=== PATIENT | female | born 1960 | race Caucasian/White ===

== ENCOUNTER 2018-04-02 08:15 | Inpatient (IN) | payer BC ==
[2018-04-02 09:02] LABS: ADD MAN DIFF? NO
[2018-04-02 09:22] LABS: BASOPHIL # 0.1 10^3/ul (0.0-0.1); BASOPHILS % 0.9 % (0.0-2.0); EOSINOPHILS # 0.2 10^3/ul (0.0-0.5); EOSINOPHILS % 3.6 % (0.0-7.0); HEMATOCRIT 44.1 % (37.0-47.0); HEMOGLOBIN 14.8 g/dl (12.0-16.0); LYMPHOCYTES # 2.5 10^3/ul (0.8-2.9); LYMPHOCYTES % 37.9 % (15.0-51.0); MEAN CORPUSCULAR HEMOGLOBIN 29.9 pg (29.0-33.0); MEAN CORPUSCULAR HGB CONC 33.6 g/dl (32.0-37.0); MEAN CORPUSCULAR VOLUME 89.1 fl (82.0-101.0); MEAN PLATELET VOLUME 10.7 fl (7.4-10.4); MONOCYTE # 0.5 10^3/ul (0.3-0.9); MONOCYTES % 7.9 % (0.0-11.0); NEUTROPHIL # 3.3 10^3/ul (1.6-7.5); NEUTROPHILS % 49.6 % (39.0-77.0); PLATELET COUNT 177 10^3/UL (140-415); RED BLOOD COUNT 4.95 10^6/ul (4.20-5.40); RED CELL DISTRIBUTION WIDTH 15.6 % (11.5-14.5)
[2018-04-02 09:22] LABS: WHITE BLOOD COUNT 6.7 10^3/ul (4.8-10.8)
[2018-04-02 09:31] LABS: ALANINE AMINOTRANSFERASE 54 IU/L (13-69); ALBUMIN 4.1 g/dl (3.3-4.9); ALBUMIN/GLOBULIN RATIO 1.13; ALKALINE PHOSPHATASE 113 IU/L (42-121); ANION GAP 18 (8-16); ASPARTATE AMINO TRANSFERASE 35 IU/L (15-46); BILIRUBIN,INDIRECT 0.3 mg/dl (0-1.1); BILIRUBIN,TOTAL 0.3 mg/dl (0.2-1.3); BLOOD UREA NITROGEN 31 mg/dl (7-20); CALCIUM 8.1 mg/dl (8.4-10.2); CARBON DIOXIDE 29 mmol/L (21-31); CHLORIDE 94 mmol/L (97-110); CREATININE 2.37 mg/dl (0.44-1.00); GLUCOSE 113 mg/dl (70-220); POTASSIUM 4.3 mmol/L (3.5-5.1); SODIUM 137 mmol/L (135-144); TOTAL PROTEIN 7.7 g/dl (6.1-8.1)
[2018-04-02 09:32] LABS: PROTIME 11.1 Sec (11.9-14.9); PT RATIO 0.9
[2018-04-02 09:33] LABS: PARTIAL THROMBOPLASTIN TIME 51.5 Sec (25.0-35.0)
[2018-04-02 09:42] LABS: TROPONIN-I 0.012 ng/ml (0.000-0.120)
[2018-04-02] MEDS ORDERED: ONDANSETRON 4 MG INJ IV (11:30)
[2018-04-02] MEDS ORDERED: ACETAMINOPHEN 325 MG TAB PO (11:30)
[2018-04-02] MEDS: LEVETIRACETAM 1000 MG (PMX) 100 ML IVPB (11:31)
[2018-04-02] MEDS: HEPARIN 5,000 UNIT/0.5 ML VIAL SC (13:53)
[2018-04-02] MEDS ORDERED: INSULIN GLARGINE HUM REC ANLOG U SC (17:30)
[2018-04-02] MEDS ORDERED: [UNRECOGNIZED DRUG - OTHER] SC (17:30)
[2018-04-02] MEDS: ATORVASTATIN 40 MG TAB PO (20:55)
[2018-04-02 22:37] LABS: HEPATITIS B SURFACE ANTIGEN NEGATIVE (NEGATIVE)
[2018-04-03 00:44] LABS: HEPATITIS B SURFACE ANTIBODY INDETERMINATE (NEGATIVE)
[2018-04-03] MEDS: LEVOTHYROXINE 112 MCG TAB PO (06:05)
[2018-04-03 07:57] LABS: ADD MAN DIFF? NO
[2018-04-03] MEDS: INSULIN ASPART [NOVOLOG] 3 ML PEN SC ×4 (08:00→20:54)
[2018-04-03 08:03] LABS: BASOPHIL # 0.1 10^3/ul (0.0-0.1); BASOPHILS % 0.9 % (0.0-2.0); EOSINOPHILS # 0.2 10^3/ul (0.0-0.5); EOSINOPHILS % 3.1 % (0.0-7.0); HEMATOCRIT 45.3 % (37.0-47.0); HEMOGLOBIN 14.8 g/dl (12.0-16.0); LYMPHOCYTES # 2.4 10^3/ul (0.8-2.9); LYMPHOCYTES % 40.3 % (15.0-51.0); MEAN CORPUSCULAR HEMOGLOBIN 29.6 pg (29.0-33.0); MEAN CORPUSCULAR HGB CONC 32.7 g/dl (32.0-37.0); MEAN CORPUSCULAR VOLUME 90.6 fl (82.0-101.0); MEAN PLATELET VOLUME 10.1 fl (7.4-10.4); MONOCYTE # 0.4 10^3/ul (0.3-0.9); MONOCYTES % 6.7 % (0.0-11.0); NEUTROPHIL # 2.9 10^3/ul (1.6-7.5); NEUTROPHILS % 48.8 % (39.0-77.0); PLATELET COUNT 183 10^3/UL (140-415); RED CELL DISTRIBUTION WIDTH 15.7 % (11.5-14.5)
[2018-04-03 08:03] LABS: WHITE BLOOD COUNT 5.9 10^3/ul (4.8-10.8)
[2018-04-03 08:28] LABS: ANION GAP 15 (8-16); BLOOD UREA NITROGEN 47 mg/dl (7-20); CALCIUM 8.5 mg/dl (8.4-10.2); CARBON DIOXIDE 29 mmol/L (21-31); CHLORIDE 98 mmol/L (97-110); CREATININE 3.21 mg/dl (0.44-1.00); GLUCOSE 91 mg/dl (70-220); MAGNESIUM 2.9 mg/dl (1.7-2.5); PHOSPHORUS 4.5 mg/dl (2.5-4.9); POTASSIUM 5.2 mmol/L (3.5-5.1); SODIUM 137 mmol/L (135-144)
[2018-04-03] MEDS ORDERED: DEXTROSE 50% 50 ML SYRINGE IV ×2 (08:30)
[2018-04-03] MEDS ORDERED: GLUCOSE GEL 15 GRAM TUBE PO ×2 (08:30)
[2018-04-03] MEDS ORDERED: GLUCOSE GEL 15 GRAM TUBE BUCCAL (08:30)
[2018-04-03] MEDS ORDERED: GLUCAGON 1 MG INJ IM (08:30)
[2018-04-03] MEDS: ISOSORBIDE MONONITRATE(SR)30 MG TAB PO (08:41)
[2018-04-03] MEDS: ASPIRIN (EC) 81 MG TAB PO (08:41)
[2018-04-03] MEDS: FAMOTIDINE 20 MG TAB PO (08:41)
[2018-04-03] MEDS: AMLODIPINE 10 MG TAB PO (08:41)
[2018-04-03] MEDS ORDERED: [UNRECOGNIZED DRUG - OTHER] SC (09:00)
[2018-04-03] MEDS ORDERED: INSULIN GLARGINE HUM REC ANLOG U SC (09:00)
[2018-04-03] MEDS: LEVETIRACETAM 500 MG TAB PO ×2 (09:47→20:56)
[2018-04-03 12:30] LABS: FREE T4 (FREE THYROXINE) 1.22 ng/dl (0.64-1.79)
[2018-04-03] MEDS ORDERED: ALBUTEROL/IPRATROPIUM (NEB) 3 ML AMP HHN (17:00)
[2018-04-03] MEDS ORDERED: ALBUMIN HUMAN 25% 100 ML IV (17:00)
[2018-04-03] MEDS: HEPARIN 1000 UNITS/ML 10 ML INJ CATHETER (20:48)
[2018-04-03] MEDS: ATORVASTATIN 40 MG TAB PO (20:56)
[2018-04-03] MEDS: INSULIN GLARGINE [LANtus] 3 ML PEN SC (20:58)
[2018-04-04] MEDS ORDERED: LEVOTHYROXINE 50 MCG TAB PO (06:00)
[2018-04-04 07:50] LABS: ADD MAN DIFF? NO
[2018-04-04 07:54] LABS: WHITE BLOOD COUNT 6.3 10^3/ul (4.8-10.8)
[2018-04-04 07:54] LABS: BASOPHILS % 0.6 % (0.0-2.0); EOSINOPHILS # 0.2 10^3/ul (0.0-0.5); EOSINOPHILS % 3.3 % (0.0-7.0); HEMATOCRIT 43.7 % (37.0-47.0); HEMOGLOBIN 14.3 g/dl (12.0-16.0); LYMPHOCYTES % 46.7 % (15.0-51.0); MEAN CORPUSCULAR HEMOGLOBIN 29.7 pg (29.0-33.0); MEAN CORPUSCULAR HGB CONC 32.7 g/dl (32.0-37.0); MEAN CORPUSCULAR VOLUME 90.9 fl (82.0-101.0); MEAN PLATELET VOLUME 10.3 fl (7.4-10.4); MONOCYTE # 0.6 10^3/ul (0.3-0.9); MONOCYTES % 9.5 % (0.0-11.0); NEUTROPHIL # 2.5 10^3/ul (1.6-7.5); NEUTROPHILS % 39.7 % (39.0-77.0); PLATELET COUNT 174 10^3/UL (140-415); RED BLOOD COUNT 4.81 10^6/ul (4.20-5.40); RED CELL DISTRIBUTION WIDTH 15.6 % (11.5-14.5)
[2018-04-04] MEDS: INSULIN ASPART [NOVOLOG] 3 ML PEN SC ×4 (08:00→20:49)
[2018-04-04] MEDS: LEVOTHYROXINE 112 MCG TAB PO (08:20)
[2018-04-04] MEDS: LEVETIRACETAM 500 MG TAB PO ×3 (08:20→20:51)
[2018-04-04] MEDS: ASPIRIN (EC) 81 MG TAB PO (08:20)
[2018-04-04] MEDS: FAMOTIDINE 20 MG TAB PO (08:20)
[2018-04-04] MEDS: ISOSORBIDE MONONITRATE(SR)30 MG TAB PO (08:21)
[2018-04-04] MEDS: AMLODIPINE 10 MG TAB PO (08:21)
[2018-04-04 08:34] LABS: ANION GAP 14 (8-16); BLOOD UREA NITROGEN 22 mg/dl (7-20); CALCIUM 8.7 mg/dl (8.4-10.2); CARBON DIOXIDE 28 mmol/L (21-31); CHLORIDE 101 mmol/L (97-110); CREATININE 2.32 mg/dl (0.44-1.00); GLUCOSE 72 mg/dl (70-220); MAGNESIUM 2.5 mg/dl (1.7-2.5); POTASSIUM 5.1 mmol/L (3.5-5.1); SODIUM 138 mmol/L (135-144)
[2018-04-04 08:49] LABS: PHOSPHORUS 3.9 mg/dl (2.5-4.9)
[2018-04-04] MEDS: ATORVASTATIN 40 MG TAB PO (20:51)
[2018-04-04] MEDS: INSULIN GLARGINE [LANtus] 3 ML PEN SC (20:51)
[2018-04-05] MEDS: HEPARIN 1000 UNITS/ML 10 ML INJ CATHETER (06:11)
[2018-04-05] MEDS: LEVOTHYROXINE 137 MCG TAB PO (06:58)
[2018-04-05] MEDS: INSULIN ASPART [NOVOLOG] 3 ML PEN SC ×2 (08:00→12:00)
[2018-04-05] MEDS: FAMOTIDINE 20 MG TAB PO (08:44)
[2018-04-05] MEDS: AMLODIPINE 10 MG TAB PO (08:45)
[2018-04-05] MEDS: LEVETIRACETAM 500 MG TAB PO (08:45)
[2018-04-05] MEDS: ISOSORBIDE MONONITRATE(SR)30 MG TAB PO (08:45)
[2018-04-05] MEDS: ASPIRIN (EC) 81 MG TAB PO (08:45)
== END 2018-04-05 17:49 | disposition home health service (06) | DRG 100 ==
LOC: E/R 08:15 → MS4 11:14
DX: R56.9 Unspecified convulsions (principal); N18.6 End stage renal disease; I69.951 Hemiplegia and hemiparesis following unspecified cerebrovascular disease affecting right dominant side; I12.0 Hypertensive chronic kidney disease with stage 5 chronic kidney disease or end stage renal disease; E11.22 Type 2 diabetes mellitus with diabetic chronic kidney disease; I25.10 Atherosclerotic heart disease of native coronary artery without angina pectoris; D63.8 Anemia in other chronic diseases classified elsewhere; I25.5 Ischemic cardiomyopathy; E03.9 Hypothyroidism, unspecified; Z79.4 Long term (current) use of insulin; Z95.1 Presence of aortocoronary bypass graft; Z99.2 Dependence on renal dialysis; Z79.82 Long term (current) use of aspirin; Z88.0 Allergy status to penicillin
CPT/HCPCS: 36415; 70450; 70553; 71045; 80048; 80053; 82962; 83735; 84100; 84439; 84443; 84484; 85025; 85610; 85730; 86706; 87081; 87340; 90935; 93005; 93923; 93970; 99285-25

== ENCOUNTER → 2018-05-08 | Outpatient (CLI) | payer BC ==
[2018-05-08 10:06] LABS: ADD MAN DIFF? NO
[2018-05-08 10:18] LABS: WHITE BLOOD COUNT 7.9 10^3/ul (4.8-10.8)
[2018-05-08 10:18] LABS: BASOPHIL # 0.1 10^3/ul (0.0-0.1); BASOPHILS % 0.9 % (0.0-2.0); EOSINOPHILS # 0.2 10^3/ul (0.0-0.5); EOSINOPHILS % 2.4 % (0.0-7.0); HEMATOCRIT 42.1 % (37.0-47.0); HEMOGLOBIN 13.8 g/dl (12.0-16.0); LYMPHOCYTES # 2.5 10^3/ul (0.8-2.9); LYMPHOCYTES % 32.2 % (15.0-51.0); MEAN CORPUSCULAR HEMOGLOBIN 29.8 pg (29.0-33.0); MEAN CORPUSCULAR HGB CONC 32.8 g/dl (32.0-37.0); MEAN CORPUSCULAR VOLUME 90.9 fl (82.0-101.0); MEAN PLATELET VOLUME 10.5 fl (7.4-10.4); MONOCYTE # 0.6 10^3/ul (0.3-0.9); NEUTROPHIL # 4.4 10^3/ul (1.6-7.5); NEUTROPHILS % 56.2 % (39.0-77.0); PLATELET COUNT 275 10^3/UL (140-415); RED BLOOD COUNT 4.63 10^6/ul (4.20-5.40)
[2018-05-08 10:41] LABS: PROTIME 11.1 Sec (11.9-14.9); PT RATIO 0.9
[2018-05-08 10:42] LABS: PARTIAL THROMBOPLASTIN TIME 27.5 Sec (25.0-35.0)
[2018-05-08 10:45] LABS: ANION GAP 16 (8-16); BLOOD UREA NITROGEN 58 mg/dl (7-20); CALCIUM 9.8 mg/dl (8.4-10.2); CARBON DIOXIDE 28 mmol/L (21-31); CHLORIDE 98 mmol/L (97-110); GLUCOSE 103 mg/dl (70-220); POTASSIUM 5.4 mmol/L (3.5-5.1); SODIUM 137 mmol/L (135-144)
== END | disposition home or self-care (01) ==
LOC: SDS 08:05 → LAB 08:05
DX: I12.0 Hypertensive chronic kidney disease with stage 5 chronic kidney disease or end stage renal disease (principal); N18.6 End stage renal disease; Z53.8 Procedure and treatment not carried out for other reasons
CPT/HCPCS: 80048; 82962; 85025; 85610; 85730

== ENCOUNTER 2018-06-19 06:06 | Outpatient (CLI) | payer BC ==
[2018-06-19] MEDS ORDERED: GLYCOPYRROLATE 0.4 MG INJ (06:25)
[2018-06-19] MEDS ORDERED: ROCURONIUM 50 MG INJ (06:25)
[2018-06-19] MEDS ORDERED: PROPOFOL 20 ML (06:25)
[2018-06-19] MEDS ORDERED: LIDOCAINE 2% (SDV) 5 ML INJ (06:25)
[2018-06-19] MEDS ORDERED: NEOSTIGMINE 3 MG/3 ML SYRINGE (06:25)
[2018-06-19] MEDS ORDERED: FENTAnyl 50 MCG/ML VIAL (06:26)
[2018-06-19] MEDS ORDERED: MIDAZOLAM 1 MG/ML 2 ML INJ (06:26)
[2018-06-19] MEDS ORDERED: DEXAMETHASONE 4 MG/ML 1 ML INJ (06:26)
[2018-06-19] MEDS ORDERED: ROPIVACAINE 0.5 % 30 ML VIAL (06:27)
[2018-06-19] MEDS ORDERED: ONDANSETRON 4 MG INJ (06:27)
[2018-06-19] MEDS ORDERED: EPHEDrine SULFATE 50 MG/5 ML SYG IV (06:30)
[2018-06-19] MEDS ORDERED: DIPHENHYDRAMINE 50 MG INJ IV (06:30)
[2018-06-19] MEDS ORDERED: OXYCODONE/ACETAMINOPHEN (5/325) TAB PO ×2 (06:30)
[2018-06-19] MEDS ORDERED: HYDROmorphONE 1 MG/5 ML IV SYRINGE IV ×3 (06:30)
[2018-06-19] MEDS ORDERED: morphine (1 MG/ML) 10ML SYRINGE IV ×3 (06:30)
[2018-06-19] MEDS ORDERED: ATROPINE 1 MG/10 ML SYRINGE IV (06:30)
[2018-06-19] MEDS ORDERED: ONDANSETRON 4 MG INJ IV (06:30)
[2018-06-19] MEDS ORDERED: MEPERIDINE 25 MG INJ IV (06:30)
[2018-06-19] MEDS ORDERED: MIDAZOLAM 1 MG/ML 2 ML INJ IV (06:30)
[2018-06-19] MEDS ORDERED: hydrALAzine 20 MG INJ IV (06:30)
[2018-06-19] MEDS ORDERED: FENTAnyl 50 MCG/ML VIAL IV ×2 (06:30)
[2018-06-19] MEDS ORDERED: LABETALOL HCL 20MG INJ IV (06:30)
[2018-06-19] MEDS ORDERED: HEPARIN 1000 UNITS/ML 10 ML INJ (06:50)
[2018-06-19] MEDS ORDERED: THROMBIN 5000 UNIT VIAL (06:50)
[2018-06-19] MEDS ORDERED: GELATIN SIZE 100 SPONGE (06:50)
[2018-06-19] MEDS ORDERED: LIDOCAINE 1% (MPF) 30 ML INJ (06:50)
[2018-06-19 07:16] LABS: ADD MAN DIFF? NO
[2018-06-19 07:20] LABS: WHITE BLOOD COUNT 9.5 10^3/ul (4.8-10.8)
[2018-06-19 07:20] LABS: BASOPHIL # 0.1 10^3/ul (0.0-0.1); BASOPHILS % 0.6 % (0.0-2.0); EOSINOPHILS # 0.2 10^3/ul (0.0-0.5); EOSINOPHILS % 2.4 % (0.0-7.0); HEMATOCRIT 32.7 % (37.0-47.0); HEMOGLOBIN 10.8 g/dl (12.0-16.0); LYMPHOCYTES # 2.8 10^3/ul (0.8-2.9); LYMPHOCYTES % 29.3 % (15.0-51.0); MEAN CORPUSCULAR HEMOGLOBIN 33.1 pg (29.0-33.0); MEAN CORPUSCULAR VOLUME 100.3 fl (82.0-101.0); MEAN PLATELET VOLUME 9.4 fl (7.4-10.4); MONOCYTE # 0.9 10^3/ul (0.3-0.9); MONOCYTES % 8.9 % (0.0-11.0); NEUTROPHIL # 5.6 10^3/ul (1.6-7.5); NEUTROPHILS % 58.4 % (39.0-77.0); PLATELET COUNT 331 10^3/UL (140-415); RED BLOOD COUNT 3.26 10^6/ul (4.20-5.40); RED CELL DISTRIBUTION WIDTH 16.8 % (11.5-14.5)
[2018-06-19 07:22] LABS: INR 0.84; PROTIME 11.6 Sec (11.9-14.9); PT RATIO 0.9
[2018-06-19 07:26] LABS: ALANINE AMINOTRANSFERASE 24 IU/L (13-69); ALBUMIN 3.9 g/dl (3.3-4.9); ALBUMIN/GLOBULIN RATIO 1.05; ALKALINE PHOSPHATASE 100 IU/L (42-121); ANION GAP 14 (8-16); ASPARTATE AMINO TRANSFERASE 31 IU/L (15-46); BILIRUBIN,INDIRECT 0.4 mg/dl (0-1.1); BILIRUBIN,TOTAL 0.4 mg/dl (0.2-1.3); BLOOD UREA NITROGEN 35 mg/dl (7-20); CALCIUM 8.8 mg/dl (8.4-10.2); CARBON DIOXIDE 31 mmol/L (21-31); CHLORIDE 95 mmol/L (97-110); CREATININE 3.65 mg/dl (0.44-1.00); GLUCOSE 114 mg/dl (70-220); POTASSIUM 3.8 mmol/L (3.5-5.1); SODIUM 136 mmol/L (135-144); TOTAL PROTEIN 7.6 g/dl (6.1-8.1)
[2018-06-19 08:14] LABS: PARTIAL THROMBOPLASTIN TIME 22.4 Sec (25.0-35.0)
== END 2018-06-19 08:34 | disposition home or self-care (01) ==
LOC: SDS 06:06 → LAB 06:06
DX: I12.0 Hypertensive chronic kidney disease with stage 5 chronic kidney disease or end stage renal disease (principal); N18.6 End stage renal disease; Z53.9 Procedure and treatment not carried out, unspecified reason
CPT/HCPCS: 71045; 80053; 82962; 85025; 85610; 85730; 93005

== ENCOUNTER 2018-07-17 12:08 | Day surgery (SDC) | payer BC ==
[~2018-07-17 12:08] MED LIST: CEFAZOLIN 2 GM/50 ML (PMX) 50 ML IVPB
[2018-07-17 13:51] LABS: ADD MAN DIFF? NO
[2018-07-17 13:52] LABS: BASOPHIL # 0.1 10^3/ul (0.0-0.1); BASOPHILS % 0.9 % (0.0-2.0); EOSINOPHILS # 0.2 10^3/ul (0.0-0.5); EOSINOPHILS % 2.2 % (0.0-7.0); HEMATOCRIT 40.2 % (37.0-47.0); HEMOGLOBIN 13.4 g/dl (12.0-16.0); LYMPHOCYTES # 2.3 10^3/ul (0.8-2.9); LYMPHOCYTES % 34.5 % (15.0-51.0); MEAN CORPUSCULAR HEMOGLOBIN 34.5 pg (29.0-33.0); MEAN CORPUSCULAR HGB CONC 33.3 g/dl (32.0-37.0); MEAN CORPUSCULAR VOLUME 103.6 fl (82.0-101.0); MEAN PLATELET VOLUME 9.4 fl (7.4-10.4); MONOCYTE # 0.5 10^3/ul (0.3-0.9); NEUTROPHIL # 3.7 10^3/ul (1.6-7.5); NEUTROPHILS % 54.1 % (39.0-77.0); PLATELET COUNT 276 10^3/UL (140-415); RED BLOOD COUNT 3.88 10^6/ul (4.20-5.40); RED CELL DISTRIBUTION WIDTH 13.7 % (11.5-14.5)
[2018-07-17 13:52] LABS: WHITE BLOOD COUNT 6.8 10^3/ul (4.8-10.8)
[2018-07-17 14:11] LABS: ANION GAP 15 (8-16); BLOOD UREA NITROGEN 51 mg/dl (7-20); CALCIUM 9.4 mg/dl (8.4-10.2); CARBON DIOXIDE 31 mmol/L (21-31); CHLORIDE 92 mmol/L (97-110); CREATININE 3.69 mg/dl (0.44-1.00); GLUCOSE 108 mg/dl (70-220); POTASSIUM 4.4 mmol/L (3.5-5.1); SODIUM 134 mmol/L (135-144)
[2018-07-17 14:12] LABS: INR 0.85; PARTIAL THROMBOPLASTIN TIME 29.1 Sec (23.0-35.0); PROTIME 11.7 Sec (11.9-14.9); PT RATIO 0.9
[2018-07-17] MEDS ORDERED: FENTAnyl 50 MCG/ML VIAL (15:41)
[2018-07-17] MEDS ORDERED: MIDAZOLAM 1 MG/ML 2 ML INJ (15:41)
[2018-07-17] MEDS ORDERED: ROPIVACAINE 0.5 % 30 ML VIAL (15:44)
[2018-07-17] MEDS: THROMBIN 5000 UNIT VIAL (16:23)
[2018-07-17] MEDS: GELATIN SIZE 100 SPONGE (16:23)
[2018-07-17] MEDS ORDERED: HEPARIN 1000 UNITS/ML 10 ML INJ (16:38)
[2018-07-17] MEDS: HEPARIN 1000 UNITS/ML 10 ML INJ (16:38)
[2018-07-17] MEDS ORDERED: hydrALAzine 20 MG INJ (17:17)
[2018-07-17] MEDS ORDERED: LIDOCAINE 2% (SDV) 5 ML INJ (17:18)
[2018-07-17] MEDS ORDERED: PROPOFOL 20 ML (17:18)
[2018-07-17] MEDS ORDERED: CEFAZOLIN 1 GM INJ (17:18)
[2018-07-17] MEDS ORDERED: HYDROmorphONE 1 MG/5 ML IV SYRINGE IV (18:00)
[2018-07-17] MEDS ORDERED: ONDANSETRON 4 MG INJ IV (18:00)
[2018-07-17] MEDS ORDERED: FENTAnyl 50 MCG/ML VIAL IV (18:00)
[2018-07-17] MEDS ORDERED: DIPHENHYDRAMINE 50 MG INJ IV (18:00)
== END 2018-07-17 18:13 | disposition home or self-care (01) ==
LOC: SDS 12:08
DX: I12.0 Hypertensive chronic kidney disease with stage 5 chronic kidney disease or end stage renal disease (principal); N18.6 End stage renal disease; E11.9 Type 2 diabetes mellitus without complications; I25.10 Atherosclerotic heart disease of native coronary artery without angina pectoris
CPT/HCPCS: 36821; 71045; 80048; 82962; 85025; 85610; 85730; 93005

== ENCOUNTER 2018-09-18 07:34 | Day surgery (SDC) | payer BC ==
[2018-09-18] MEDS: GELATIN SIZE 100 SPONGE ×2 (07:53→11:39)
[2018-09-18] MEDS: LIDOCAINE 1% (STERILE-PAK) 30 ML INJ ×2 (07:54→07:55)
[2018-09-18] MEDS: THROMBIN 5000 UNIT VIAL ×2 (07:56→11:39)
[2018-09-18] MEDS: THROMBIN 5000 UNIT VIAL TOP (07:56)
[2018-09-18 08:39] LABS: ADD MAN DIFF? NO
[2018-09-18 08:46] LABS: BASOPHIL # 0.1 10^3/ul (0.0-0.1); EOSINOPHILS # 0.4 10^3/ul (0.0-0.5); EOSINOPHILS % 5.5 % (0.0-7.0); HEMATOCRIT 39.8 % (37.0-47.0); HEMOGLOBIN 13.4 g/dl (12.0-16.0); LYMPHOCYTES # 2.8 10^3/ul (0.8-2.9); LYMPHOCYTES % 39.9 % (15.0-51.0); MEAN CORPUSCULAR HEMOGLOBIN 32.8 pg (29.0-33.0); MEAN CORPUSCULAR HGB CONC 33.7 g/dl (32.0-37.0); MEAN CORPUSCULAR VOLUME 97.3 fl (82.0-101.0); MEAN PLATELET VOLUME 9.9 fl (7.4-10.4); MONOCYTE # 0.3 10^3/ul (0.3-0.9); MONOCYTES % 3.8 % (0.0-11.0); NEUTROPHIL # 3.5 10^3/ul (1.6-7.5); NEUTROPHILS % 49.5 % (39.0-77.0); PLATELET COUNT 242 10^3/UL (140-415); RED BLOOD COUNT 4.09 10^6/ul (4.20-5.40); RED CELL DISTRIBUTION WIDTH 13.4 % (11.5-14.5)
[2018-09-18 08:46] LABS: WHITE BLOOD COUNT 7.1 10^3/ul (4.8-10.8)
[2018-09-18] MEDS ORDERED: PROPOFOL 20 ML (08:51)
[2018-09-18] MEDS ORDERED: LIDOCAINE 2% (SDV) 5 ML INJ (08:51)
[2018-09-18] MEDS ORDERED: ROPIVACAINE 0.5 % 30 ML VIAL (08:52)
[2018-09-18] MEDS ORDERED: VANCOMYCIN 1 GM (PMX) 250 ML (08:56)
[2018-09-18] MEDS ORDERED: GENTAMICIN 80 MG/NS (PMX) 100 ML (08:56)
[2018-09-18 09:05] LABS: INR 0.85; PROTIME 11.7 Sec (11.9-14.9); PT RATIO 0.9
[2018-09-18 09:06] LABS: PARTIAL THROMBOPLASTIN TIME 30.4 Sec (23.0-35.0)
[2018-09-18 09:13] LABS: ANION GAP 9 (5-13); CALCIUM 10.2 mg/dl (8.4-10.2); CARBON DIOXIDE 33 mmol/L (21-31); CHLORIDE 96 mmol/L (97-110); Estimated GFR 14 mL/min (>60); GLUCOSE 98 mg/dl (70-220); POTASSIUM 4.2 mmol/L (3.5-5.1); SODIUM 138 mmol/L (135-144)
[2018-09-18 09:14] LABS: BLOOD UREA NITROGEN 24 mg/dl (7-20); CREATININE 3.29 mg/dl (0.44-1.00)
[2018-09-18] MEDS ORDERED: MIDAZOLAM 1 MG/ML 2 ML INJ (09:26)
[2018-09-18] MEDS ORDERED: FENTAnyl 50 MCG/ML VIAL (09:35)
[2018-09-18] MEDS: BUPIVACAINE 0.5% (SDV) 30 ML INJ (09:45)
[2018-09-18] MEDS: HEPARIN 1000 UNITS/ML 10 ML INJ (09:46)
[2018-09-18] MEDS ORDERED: EPHEDrine 50 MG INJ (10:06)
[2018-09-18] MEDS ORDERED: LABETALOL HCL 20MG INJ IV (10:30)
[2018-09-18] MEDS ORDERED: EPHEDrine SULFATE 50 MG/5 ML SYG IV (10:30)
[2018-09-18] MEDS ORDERED: METOCLOPRAMIDE 10 MG INJ IV (10:30)
[2018-09-18] MEDS ORDERED: DIPHENHYDRAMINE 50 MG INJ IV (10:30)
[2018-09-18] MEDS ORDERED: hydrALAzine 20 MG INJ IV (10:30)
[2018-09-18] MEDS ORDERED: MIDAZOLAM 1 MG/ML 2 ML INJ IV (10:30)
[2018-09-18] MEDS ORDERED: FENTAnyl 50 MCG/ML VIAL IV ×3 (10:30)
[2018-09-18] MEDS ORDERED: ONDANSETRON 4 MG INJ IV (10:30)
[2018-09-18] MEDS ORDERED: MEPERIDINE 25 MG INJ IV (10:30)
[2018-09-18] MEDS ORDERED: OXYCODONE/ACETAMINOPHEN (5/325) TAB PO ×2 (10:30)
[2018-09-18] MEDS ORDERED: ONDANSETRON 4 MG INJ (11:40)
[2018-09-18] MEDS ORDERED: ATROPINE 1 MG/10 ML SYRINGE (12:03)
[2018-09-18] MEDS: POLYMYXIN/BACITRACIN 1L IRRIG (14:06)
== END 2018-09-18 16:40 | disposition home or self-care (01) ==
LOC: SDS 07:34
DX: I12.0 Hypertensive chronic kidney disease with stage 5 chronic kidney disease or end stage renal disease (principal); N18.6 End stage renal disease; E11.9 Type 2 diabetes mellitus without complications; I25.10 Atherosclerotic heart disease of native coronary artery without angina pectoris
CPT/HCPCS: 36821; 71045; 80048; 82962; 85025; 85610; 85730; 93005